=== PATIENT | male | born 1935 | race Caucasian/White ===

== ENCOUNTER 2018-04-24 13:40 | Emergency (ER) | payer MEDICARE, BC ==
[~2018-04-24] VITALS: Ht 182.9 cm; Wt 95.3 kg
--- NOTE | 2018-04-24 13:50 | NUR ---
PATIENT WAS MSE BY DR KATZ IN [facility] 04A. BIB BY [facility].
[2018-04-24] MEDS ORDERED: METO25TA6 PO (13:55)
[2018-04-24] MEDS ORDERED: IPRA0.2S48 IH (13:55)
[2018-04-24] MEDS ORDERED: APIX5TAB PO (13:55)
[2018-04-24] MEDS ORDERED: FAMO20TA8 PO (13:55)
[2018-04-24] MEDS ORDERED: DOCU-141 PO (13:55)
[2018-04-24] MEDS ORDERED: LEVA1.2528 IH (13:55)
[2018-04-24] MEDS ORDERED: MELA5TAB PO (13:55)
[2018-04-24] MEDS ORDERED: ASPI81TA31 PO (13:55)
[2018-04-24] MEDS ORDERED: OMEG10006 PO (13:55)
[2018-04-24] MEDS ORDERED: ATOR40TA PO (13:55)
[2018-04-24] MEDS ORDERED: FURO40TA5 PO (13:55)
[2018-04-24] MEDS ORDERED: IV NORMAL SALINE 1000 ML BAG IV ONE (14:00)
[2018-04-24 14:16] LABS: BASOPHILS # (AUTO) 0.1 K/uL (0.0-8.0); BASOPHILS % (AUTO) 0.7 % (0.0-2.0); EOSINOPHILS # (AUTO) 0.2 K/uL (0.0-0.7); EOSINOPHILS % (AUTO) 3.3 % (0.0-7.0); HEMATOCRIT 42.5 % (36.7-47.1); HEMOGLOBIN 14.7 g/dL (12.5-16.3); LYMPHOCYTES # (AUTO) 1.7 K/uL (20.0-40.0); LYMPHOCYTES % (AUTO) 24.1 % (20.5-51.5); MEAN CORPUSCULAR HEMOGLOBIN 32.5 uug (23.8-33.4); MEAN CORPUSCULAR HGB CONC 35 g/dL (32.5-36.3); MEAN CORPUSCULAR VOLUME 93.7 fL (73.0-96.2); MONOCYTES # (AUTO) 0.6 K/uL (2.0-10.0); MONOCYTES % (AUTO) 8.5 % (0.0-11.0); NEUTROPHILS # (AUTO) 4.4 K/uL (1.8-8.9); NEUTROPHILS % (AUTO) 63.4 % (38.5-71.5); PLATELET COUNT (AUTO) 150 K/uL (152-348); RED BLOOD CELL COUNT(AUTO) 4.53 MIL/uL (4.06-5.63)
[2018-04-24 14:24] LABS: CARBON DIOXIDE 28 mmol/L (21-32); CHLORIDE 105 mmol/L (98-107); CREATININE 1.3 mg/dL (0.6-1.3); GLUCOSE 139 mg/dL (74-106); UREA NITROGEN, BLOOD 16 mg/dL (7-18)
--- NOTE | 2018-04-24 15:09 | NUR ---
Patient discharged to home in stable conditon. Written and verbal after care instructions given. Patient and verbalizes understanding of instructions.
[2018-04-24 15:11] VITALS: BP 112/65
== END 2018-04-24 15:12 | disposition home or self-care (01) ==
LOC: ER 13:40
DX: R55 Syncope and collapse (principal); I10 Essential (primary) hypertension; I48.91 Unspecified atrial fibrillation; K21.9 Gastro-esophageal reflux disease without esophagitis; E78.5 Hyperlipidemia, unspecified; J44.9 Chronic obstructive pulmonary disease, unspecified; Z79.82 Long term (current) use of aspirin; Z79.899 Other long term (current) drug therapy
CPT/HCPCS: 36415; 70030-TC; 71045; 85025; 85730; 93005; A4663; J7030